=== PATIENT | female | born 1965 | race African-American/Black ===

== ENCOUNTER 2016-08-11 13:03 | Emergency (ER) | payer OTHER ==
[~2016-08-11] VITALS: Ht 167.6 cm; Wt 113.6 kg
[~2016-08-11 13:03] MED LIST: INSU100C4 SQ; METF10002 PO
[2016-08-11 13:15] LABS: GLUCOSE,POINT OF CARE 125 MG/DL (70-110)
[2016-08-11] MEDS ORDERED: TraMADol HCL 50 MG TABLET PO ONE (15:30)
[2016-08-11] MEDS ORDERED: KETOROLAC TROMETHAMINE 60 MG/2 ML VIAL IM ONE (15:30)
[2016-08-11 16:53] VITALS: BP 129/70
== END 2016-08-11 16:56 | disposition home or self-care (01) ==
LOC: EMS 13:08
DX: S43.409A Unspecified sprain of unspecified shoulder joint, initial encounter (principal); M12.811 Other specific arthropathies, not elsewhere classified, right shoulder; I10 Essential (primary) hypertension; E11.9 Type 2 diabetes mellitus without complications; Z79.4 Long term (current) use of insulin
CPT/HCPCS: 73030; 82962; 96372; 99284; A4566; J1885

== ENCOUNTER 2020-10-08 18:06 | Emergency (ER) | payer MEDICAID, OTHER ==
[~2020-10-08] VITALS: Ht 175.3 cm; Wt 118.2 kg
[~2020-10-08 18:06] MED LIST changes: +METF-446 PO; -METF10002 PO
[2020-10-08] MEDS ORDERED: [UNRECOGNIZED DRUG - REMARK] PO (18:18)
[2020-10-08] MEDS ORDERED: METHOCARBAMOL 500 MG TABLET PO ONE (20:00)
[2020-10-08] MEDS ORDERED: KETOROLAC TROMETHAMINE 60 MG/2 ML VIAL IM ONE (20:00)
[2020-10-08 20:30] VITALS: BP 145/61
== END 2020-10-08 20:50 | disposition home or self-care (01) ==
LOC: EMS 18:06
DX: S39.012A Strain of muscle, fascia and tendon of lower back, initial encounter (principal); E11.9 Type 2 diabetes mellitus without complications; F15.90 Other stimulant use, unspecified, uncomplicated; F12.90 Cannabis use, unspecified, uncomplicated; X58.XXXA Exposure to other specified factors, initial encounter; Y93.89 Activity, other specified; Y92.89 Other specified places as the place of occurrence of the external cause; Y99.8 Other external cause status
CPT/HCPCS: 82962; 96372; 99283; J1885

== ENCOUNTER 2020-12-24 17:23 | Emergency (ER) | payer MEDICAID ==
[~2020-12-24] VITALS: Ht 172.7 cm; Wt 122.7 kg
[~2020-12-24 17:23] MED LIST changes: +[UNRECOGNIZED DRUG - REMARK] PO
[2020-12-24 17:34] VITALS: BP 167/103
[2020-12-24] MEDS ORDERED: DOXYCYCLINE HYCLATE 100 MG TABLET PO ONE (18:30)
[2020-12-24] MEDS ORDERED: LIDOCAINE/PF 1% 2 ML VIAL IM ONE (18:30)
[2020-12-24] MEDS ORDERED: CefTRIAXone SODIUM 1 GM/VIAL IM ONE (18:30)
== END 2020-12-24 18:46 | disposition home or self-care (01) ==
LOC: EMS 17:24
DX: R30.0 Dysuria (principal); E11.9 Type 2 diabetes mellitus without complications; I10 Essential (primary) hypertension; F12.90 Cannabis use, unspecified, uncomplicated; F19.90 Other psychoactive substance use, unspecified, uncomplicated; Z70.8 Other sex counseling; Z79.84 Long term (current) use of oral hypoglycemic drugs
CPT/HCPCS: 82962; 87491; 87591; 96372; 99283; J0696; J3490

== ENCOUNTER 2021-01-30 09:12 | Emergency (ER) | payer MEDICAID ==
[~2021-01-30] VITALS: Ht 167.6 cm; Wt 122.7 kg
[2021-01-30 12:09] LABS: COVID AG,FIA SOURCE NASOPHARYNGEAL
[2021-01-30 12:34] LABS: RAPID GROUP A STREP NEGATIVE (NEGATIVE)
[2021-01-30] MEDS ORDERED: ALBUTEROL SULFATE HFA 90 MCG/PUFF 8 GM INHALER IH ONE (12:45)
[2021-01-30] MEDS ORDERED: AZITHROMYCIN 500 MG TABLET PO ONE (13:00)
[2021-01-30 13:45] VITALS: BP 141/81
== END 2021-01-30 13:50 | disposition home or self-care (01) ==
LOC: EMS 09:14
DX: J18.9 Pneumonia, unspecified organism (principal); E11.9 Type 2 diabetes mellitus without complications; I10 Essential (primary) hypertension; F12.90 Cannabis use, unspecified, uncomplicated; F19.90 Other psychoactive substance use, unspecified, uncomplicated; Z20.822 Contact with and (suspected) exposure to COVID-19; Z79.4 Long term (current) use of insulin
CPT/HCPCS: 71045; 82962; 87426; 87430; 94640; 99284; A9575; U0003; J3535

== ENCOUNTER 2021-03-01 07:50 | Observation (INO) | payer MEDICAID, OTHER ==
[~2021-03-01] VITALS: Ht 162.6 cm; Wt 131.0 kg
[2021-03-01 08:48] LABS: COVID AG,FIA SOURCE NASOPHARYNGEAL
[2021-03-01 08:49] LABS: BASOPHILS % (AUTO) 0.7 % (0.0-2.0); EOSINOPHILS % (AUTO) 3.1 % (1.0-6.0); HEMATOCRIT 39.7 % (36-46); HEMOGLOBIN 12.6 g/dL (12.0-16.0); LYMPHOCYTES # (AUTO) 1.6 K/uL (1.0-4.8); LYMPHOCYTES % (AUTO) 26.2 % (22.0-44.0); MEAN CORPUSCULAR HEMOGLOBIN 25.9 pg (26.0-34.0); MEAN CORPUSCULAR HGB CONC 31.8 G/dL (31.0-37.0); MEAN CORPUSCULAR VOLUME 82 fL (80-100); MONOCYTES # (AUTO) 0.4 K/uL (0.1-1.0); MONOCYTES % (AUTO) 6.6 % (2.0-9.0); NEUTROPHILS # (AUTO) 3.8 K/uL (1.8-7.7); NEUTROPHILS % (AUTO) 63.4 % (40.0-70.0); PLATELET COUNT (AUTO) 251 K/uL (150-450); RED BLOOD CELL COUNT(AUTO) 4.87 MIL/uL (4.00-5.20)
[2021-03-01 09:02] LABS: PROTHROMBIN TIME 10.3 SEC (9.4-11.6)
[2021-03-01 09:05] LABS: ANION GAP 6 mmol/L (8-16); CALCIUM, TOTAL 8.7 mg/dL (8.8-10.5); CARBON DIOXIDE 28 mmol/L (22-29); CHLORIDE 107 mmol/L (98-107); CREATININE 0.55 mg/dL (0.60-1.30); GLOMERULAR FILTR. RATE CALC > 60 mL/min (>60); GLUCOSE,RANDOM 111 mg/dL (70-110); SODIUM SERUM 141 mmol/L (136-145); UREA NITROGEN, BLOOD 12 mg/dL (7-18)
[2021-03-01 09:11] LABS: B-TYPE NATRIURETIC PEPTIDE 69 pg/mL (0-100)
[2021-03-01] MEDS ORDERED: AZITHROMYCIN 500 MG/NS 250 ML IV ONE (09:30)
[2021-03-01] MEDS ORDERED: CefTRIAXone 1 GM/DEXTROSE 50 ML IV ONE (09:30)
[2021-03-01 09:37] LABS: BILIRUBIN,URINE NEGATIVE (NEGATIVE); GLUCOSE, URINE (UA) NEGATIVE (NEGATIVE); KETONES,URINE NEGATIVE (NEGATIVE); LEUKOCYTE ESTERASE ,URINE NEGATIVE (NEGATIVE); NITRATE,URINE NEGATIVE (NEGATIVE); OCCULT BLOOD,URINE NEGATIVE (NEGATIVE); PH,URINE 7.5 (5.0-8.0); PROTEIN,URINE NEGATIVE (NEGATIVE); UROBILINOGEN,URINE 0.2 mg/dL (<=1.0)
[2021-03-01 09:37] LABS: ALANINE AMINOTRANSFERASE 26 U/L (12-78); ALBUMIN 3.1 g/dL (3.4-5.0); ALKALINE PHOSPHATASE 90 U/L (46-116); ASPARTATE AMINOTRANSFERASE 14 U/L (15-37); BILIRUBIN,TOTAL 0.2 mg/dL (0.1-1.0); CREATINE KINASE, TOTAL ONLY 143 U/L (26-192); HCG,QUANTITATIVE 2 mIU/mL (0-6); PHOSPHORUS 3.1 mg/dL (2.5-4.9); TOTAL PROTEIN, SERUM 7.1 g/dL (6.4-8.2)
[2021-03-01 09:43] LABS: AMPHET/METH SCREEN,URINE NEGATIVE (NEGATIVE); BARBITURATE SCREEN, URINE NEGATIVE (NEGATIVE); BENZODIAZEPINES SCREEN,URINE NEGATIVE (NEGATIVE); CANNABINOID SCREEN,URINE POSITIVE (NEGATIVE); COCAINE SCREEN,URINE NEGATIVE (NEGATIVE); METHADONE SCREEN, URINE NEGATIVE (NEGATIVE); OPIATE SCREEN,URINE NEGATIVE (NEGATIVE)
[2021-03-01 09:57] LABS: PHENCYCLIDINE SCREEN,URINE NEGATIVE (NEGATIVE)
[2021-03-01] MEDS ORDERED: MAGNESIUM SULFATE 1 GM in DEXTROSE 5%-WATER 50 ML IV ONE (10:00)
[2021-03-01 10:13] LABS: APPEARANCE,URINE CLEAR (CLEAR)
[2021-03-01] MEDS ORDERED: 0.9% SODIUM CHLORIDE 10 ML SYRINGE IVP PRN (10:15)
[2021-03-01] MEDS ORDERED: ACETAMINOPHEN 325 MG TABLET PO PRN ×2 (10:15→18:00)
[2021-03-01] MEDS ORDERED: ONDANSETRON HCL 4 MG/2 ML VIAL IVP PRN ×2 (10:15→18:00)
[2021-03-01 14:06] VITALS: BP 150/63
[2021-03-01] MEDS ORDERED: PNEUMOCOCCAL VACCINE POLYVALENT 0.5 ML VIAL [PPSV23] IM. ONE (14:45)
[2021-03-01] MEDS ORDERED: ZOLPIDEM TARTRATE 5 MG TABLET PO PRN (18:00)
[2021-03-01] MEDS ORDERED: MORPHINE SULFATE 2 MG/ML SYRINGE IVP PRN (18:00)
[2021-03-01] MEDS ORDERED: INSULIN LISPRO 100 UNITS/ML SQ PRN ×2 (18:00→20:30)
[2021-03-01] MEDS ORDERED: IPRATROPIUM BROMIDE 0.5 MG/2.5 ML NEB SOLUTION NEB PRN (18:00)
[2021-03-01] MEDS ORDERED: HYDROCODONE/ACETAMINOPHEN 5-325 MG TABLET PO PRN (18:00)
[2021-03-01] MEDS ORDERED: ALBUTEROL SULFATE 2.5 MG/0.5 ML NEB SOLUTION NEB PRN (18:00)
[2021-03-01] MEDS ORDERED: BISACODYL 10 MG RECTAL RECTAL SUPPOSITORY PR PRN (18:00)
[2021-03-01] MEDS ORDERED: MAGNESIUM HYDROXIDE SUSPENSION 30 ML UDCUP PO PRN (18:00)
[2021-03-01] MEDS ORDERED: DEXTROSE 50%-WATER 25 GM/50 ML SYRINGE IVP PRN ×2 (18:00→20:30)
[2021-03-01 18:43] LABS: FREE T4 (FREE THYROXINE) 1.15 ng/dL (0.76-1.46); THYROID STIMULATING HORMONE 1.79 uIU/mL (0.36-3.74)
[2021-03-01 19:56] VITALS: BP 183/79
[2021-03-01] MEDS ORDERED: MAGNESIUM SULFATE 2 GM/WATER 50 ML IV PRN (20:30)
[2021-03-01] MEDS ORDERED: MAGNESIUM SULFATE 4 GM/WATER 100 ML IV PRN (20:30)
[2021-03-01] MEDS ORDERED: MAGNESIUM OXIDE 400 MG TABLET PO PRN (20:30)
[2021-03-01] MEDS ORDERED: POTASSIUM CHLORIDE 20 MEQ ER TABLET PO PRN (20:30)
[2021-03-01] MEDS ORDERED: HydrALAZINE HCL 20 MG/ML VIAL IVP PRN (20:30)
[2021-03-01] MEDS: DOCUSATE SODIUM 100 MG CAPSULE PO SCH (21:00)
[2021-03-01] MEDS: LOSARTAN POTASSIUM 25 MG TABLET PO SCH (21:30)
[2021-03-01 23:42] VITALS: BP 148/76
[2021-03-02] MEDS: HEPARIN SODIUM,PORCINE 5,000 UNITS/ML VIAL SQ SCH ×4 (00:14→23:38)
[2021-03-02 04:39] VITALS: BP 148/73
[2021-03-02 05:19] LABS: GLUCOMETER DEV NAME(LOC) 5N.3; GLUCOSE,POINT OF CARE 116 MG/DL (70-110)
[2021-03-02 07:28] LABS: EOSINOPHILS % (AUTO) 2.9 % (1.0-6.0); HEMATOCRIT 41.3 % (36-46); HEMOGLOBIN 13.1 g/dL (12.0-16.0); LYMPHOCYTES # (AUTO) 1.7 K/uL (1.0-4.8); LYMPHOCYTES % (AUTO) 27.4 % (22.0-44.0); MEAN CORPUSCULAR HGB CONC 31.7 G/dL (31.0-37.0); MEAN CORPUSCULAR VOLUME 82 fL (80-100); MONOCYTES # (AUTO) 0.5 K/uL (0.1-1.0); MONOCYTES % (AUTO) 7.9 % (2.0-9.0); NEUTROPHILS # (AUTO) 3.9 K/uL (1.8-7.7); NEUTROPHILS % (AUTO) 60.8 % (40.0-70.0); PLATELET COUNT (AUTO) 274 K/uL (150-450); RED BLOOD CELL COUNT(AUTO) 5.04 MIL/uL (4.00-5.20); RED CELL DISTRIBUTION WIDTH 15.3 % (11.5-14.5)
[2021-03-02 07:30] LABS: HEMOGLOBIN A1C 6.3 % (3.8-5.6)
[2021-03-02 07:41] VITALS: BP 147/71
[2021-03-02 07:50] LABS: ALANINE AMINOTRANSFERASE 26 U/L (12-78); ALKALINE PHOSPHATASE 82 U/L (46-116); ANION GAP 5 mmol/L (8-16); ASPARTATE AMINOTRANSFERASE 17 U/L (15-37); BILIRUBIN,TOTAL 0.2 mg/dL (0.1-1.0); CALCIUM, TOTAL 8.8 mg/dL (8.8-10.5); CARBON DIOXIDE 29 mmol/L (22-29); CHLORIDE 106 mmol/L (98-107); CREATININE 0.58 mg/dL (0.60-1.30); GLOMERULAR FILTR. RATE CALC > 60 mL/min (>60); GLUCOSE,RANDOM 108 mg/dL (70-110); SODIUM SERUM 140 mmol/L (136-145); UREA NITROGEN, BLOOD 13 mg/dL (7-18)
[2021-03-02] MEDS ORDERED: SODIUM CHLORIDE 0.9% 250 ML IV ONE (08:11)
[2021-03-02] MEDS: CefTRIAXone 1 GM/DEXTROSE 50 ML IV SCH (08:12)
[2021-03-02] MEDS: DOCUSATE SODIUM 100 MG CAPSULE PO SCH ×2 (08:12→22:07)
[2021-03-02] MEDS: LOSARTAN POTASSIUM 25 MG TABLET PO SCH ×2 (08:12→22:07)
[2021-03-02] MEDS: AZITHROMYCIN 500 MG/NS 250 ML IV SCH (09:39)
[2021-03-02 11:15] VITALS: BP 141/72
[2021-03-02 12:34] LABS: GLUCOMETER DEV NAME(LOC) 5S.1; GLUCOSE,POINT OF CARE 71 MG/DL (70-110)
[2021-03-02 12:37] LABS: GLUCOMETER DEV NAME(LOC) 5N.1C; GLUCOSE,POINT OF CARE 123 MG/DL (70-110)
[2021-03-02 15:19] VITALS: BP 148/73
[2021-03-02] MEDS ORDERED: METF-911 PO (15:41)
[2021-03-02] MEDS ORDERED: LOSA25TA2 PO (15:41)
[2021-03-02 20:06] VITALS: BP 150/91
[2021-03-02 22:07] VITALS: BP 141/68
[2021-03-02 23:57] LABS: GLUCOMETER DEV NAME(LOC) 6N.1; GLUCOSE,POINT OF CARE 150 MG/DL (70-110)
[2021-03-03 05:32] LABS: BASOPHILS % (AUTO) 0.7 % (0.0-2.0); EOSINOPHILS % (AUTO) 2.9 % (1.0-6.0); HEMATOCRIT 43.2 % (36-46); HEMOGLOBIN 13.7 g/dL (12.0-16.0); LYMPHOCYTES % (AUTO) 29.9 % (22.0-44.0); MEAN CORPUSCULAR HGB CONC 31.7 G/dL (31.0-37.0); MEAN CORPUSCULAR VOLUME 82 fL (80-100); MONOCYTES # (AUTO) 0.6 K/uL (0.1-1.0); MONOCYTES % (AUTO) 8.7 % (2.0-9.0); NEUTROPHILS # (AUTO) 3.8 K/uL (1.8-7.7); NEUTROPHILS % (AUTO) 57.8 % (40.0-70.0); PLATELET COUNT (AUTO) 298 K/uL (150-450); RED BLOOD CELL COUNT(AUTO) 5.26 MIL/uL (4.00-5.20); RED CELL DISTRIBUTION WIDTH 15.1 % (11.5-14.5)
[2021-03-03 05:45] VITALS: BP 141/65
[2021-03-03 05:54] LABS: ALANINE AMINOTRANSFERASE 25 U/L (12-78); ALBUMIN 3.1 g/dL (3.4-5.0); ALKALINE PHOSPHATASE 85 U/L (46-116); ANION GAP 11 mmol/L (8-16); ASPARTATE AMINOTRANSFERASE 17 U/L (15-37); BILIRUBIN,TOTAL 0.2 mg/dL (0.1-1.0); CARBON DIOXIDE 29 mmol/L (22-29); CHLORIDE 105 mmol/L (98-107); GLOMERULAR FILTR. RATE CALC > 60 mL/min (>60); GLUCOSE,RANDOM 113 mg/dL (70-110); POTASSIUM 4.6 mmol/L (3.5-5.1); SODIUM SERUM 145 mmol/L (136-145); TOTAL PROTEIN, SERUM 7.4 g/dL (6.4-8.2); UREA NITROGEN, BLOOD 14 mg/dL (7-18)
[2021-03-03 06:59] LABS: GLUCOMETER DEV NAME(LOC) 6N.1; GLUCOSE,POINT OF CARE 107 MG/DL (70-110)
[2021-03-03 08:22] VITALS: BP 138/68
[2021-03-03] MEDS: DOCUSATE SODIUM 100 MG CAPSULE PO SCH (08:32)
[2021-03-03] MEDS: LOSARTAN POTASSIUM 25 MG TABLET PO SCH (08:32)
[2021-03-03] MEDS: HEPARIN SODIUM,PORCINE 5,000 UNITS/ML VIAL SQ SCH ×2 (08:32→16:00)
[2021-03-03] MEDS: CefTRIAXone 1 GM/DEXTROSE 50 ML IV SCH (08:33)
[2021-03-03] MEDS ORDERED: SODIUM CHLORIDE 0.9% 250 ML IV ONE (08:43)
[2021-03-03] MEDS: AZITHROMYCIN 500 MG/NS 250 ML IV SCH (10:17)
[2021-03-03 14:28] LABS: GLUCOMETER DEV NAME(LOC) 6N.1; GLUCOSE,POINT OF CARE 123 MG/DL (70-110)
[2021-03-03] MEDS ORDERED: AZITH500IV IV (14:37)
[2021-03-03] MEDS ORDERED: CEFX2I IV (14:38)
[2021-03-03] MEDS ORDERED: DOCU-270 PO (14:38)
[2021-03-03] MEDS ORDERED: HEPA500018 SQ (14:39)
[2021-03-03] MEDS ORDERED: LOSA25TA21 PO (14:40)
[2021-03-03] MEDS ORDERED: BISA10SU11 PR (14:41)
[2021-03-03] MEDS ORDERED: HYDR-4723 PO (14:42)
[2021-03-03] MEDS ORDERED: HYDR20I IVP (14:44)
[2021-03-03] MEDS ORDERED: ONDA4VIA22 IV (14:48)
[2021-03-03 15:20] VITALS: BP 127/82
== END 2021-03-03 20:13 | disposition home or self-care (01) ==
LOC: EMS 07:53 → 5S 10:41 → INTOOBSV 10:41 → 6N 03-02 21:35
PROVIDERS: ADMIT Hospitalist; ATTEND Hospitalist
DX: R00.1 Bradycardia, unspecified (principal); E83.42 Hypomagnesemia; Z20.822 Contact with and (suspected) exposure to COVID-19; R53.1 Weakness; F20.9 Schizophrenia, unspecified; I10 Essential (primary) hypertension; E11.9 Type 2 diabetes mellitus without complications; F19.10 Other psychoactive substance abuse, uncomplicated; E44.0 Moderate protein-calorie malnutrition; Z96.653 Presence of artificial knee joint, bilateral; Z79.4 Long term (current) use of insulin; Z79.899 Other long term (current) drug therapy
CPT/HCPCS: 36415 ×3; 70450; 71045; 80053 ×3; 80307; 81003; 82040; 82550; 82962 ×3; 83036; 83735 ×2; 83880; 84100; 84439 ×2; 84443; 84484; 84702; 85025 ×3; 85610; 85730; 87426; 93005; 93306; 96365; 96366 ×3; 96367; 96372 ×2; 99219 ×3; 99285; G0480; J0360; J0456 ×2; J0696 ×2; J1644 ×2; J3475; J7050 ×2; J7060; U0003; 93366

== ENCOUNTER 2021-04-22 11:50 | Inpatient (IN) | payer OTHER ==
[~2021-04-22] VITALS: Ht 172.7 cm; Wt 133.8 kg
[~2021-04-22 11:50] MED LIST changes: -INSU100C4 SQ; +LOSA25TA2 PO; +LOSA25TA21 PO; -METF-446 PO; +METF-911 PO; -[UNRECOGNIZED DRUG - REMARK] PO
[2021-04-22 12:59] LABS: BASOPHILS % (AUTO) 0.7 % (0.0-2.0); EOSINOPHILS % (AUTO) 2.5 % (1.0-6.0); HEMATOCRIT 38.5 % (36-46); HEMOGLOBIN 12.2 g/dL (12.0-16.0); LYMPHOCYTES # (AUTO) 2.1 K/uL (1.0-4.8); LYMPHOCYTES % (AUTO) 34.5 % (22.0-44.0); MEAN CORPUSCULAR HEMOGLOBIN 25.5 pg (26.0-34.0); MEAN CORPUSCULAR HGB CONC 31.6 G/dL (31.0-37.0); MEAN CORPUSCULAR VOLUME 81 fL (80-100); MONOCYTES # (AUTO) 0.6 K/uL (0.1-1.0); MONOCYTES % (AUTO) 9.7 % (2.0-9.0); NEUTROPHILS # (AUTO) 3.2 K/uL (1.8-7.7); NEUTROPHILS % (AUTO) 52.6 % (40.0-70.0); PLATELET COUNT (AUTO) 277 K/uL (150-450); RED BLOOD CELL COUNT(AUTO) 4.77 MIL/uL (4.00-5.20)
[2021-04-22 13:15] LABS: ANION GAP 9 mmol/L (8-16); CARBON DIOXIDE 27 mmol/L (22-29); CHLORIDE 108 mmol/L (98-107); GLOMERULAR FILTR. RATE CALC > 60 mL/min (>60); GLUCOSE,RANDOM 86 mg/dL (70-110); SODIUM SERUM 144 mmol/L (136-145); UREA NITROGEN, BLOOD 15 mg/dL (7-18)
[2021-04-22 13:23] LABS: ALBUMIN 3.6 g/dL (3.4-5.0); ALKALINE PHOSPHATASE 82 U/L (46-116); ASPARTATE AMINOTRANSFERASE 12 U/L (15-37); BILIRUBIN,TOTAL 0.4 mg/dL (0.1-1.0); FREE T4 (FREE THYROXINE) 1.14 ng/dL (0.76-1.46); THYROID STIMULATING HORMONE 1.21 uIU/mL (0.36-3.74); TOTAL PROTEIN, SERUM 7.6 g/dL (6.4-8.2)
[2021-04-22 13:34] LABS: ALANINE AMINOTRANSFERASE 22 U/L (12-78)
[2021-04-22] MEDS ORDERED: SODIUM CHLORIDE 0.9% 100 ML ONE (14:05)
[2021-04-22] MEDS ORDERED: IOHEXOL 350 MG/ML 75 ML VIAL ONE (14:06)
[2021-04-22 15:59] LABS: COVID AG,FIA SOURCE NASOPHARYNGEAL
[2021-04-22] MEDS ORDERED: ACETAMINOPHEN 325 MG TABLET PO PRN ×2 (16:15→17:15)
[2021-04-22] MEDS ORDERED: 0.9% SODIUM CHLORIDE 10 ML SYRINGE IVP PRN (16:15)
[2021-04-22] MEDS ORDERED: ONDANSETRON HCL 4 MG/2 ML VIAL IVP PRN ×2 (16:15→17:15)
[2021-04-22] MEDS ORDERED: HYDROCODONE/ACETAMINOPHEN 5-325 MG TABLET PO PRN (17:15)
[2021-04-22] MEDS ORDERED: MORPHINE SULFATE 2 MG/ML SYRINGE IVP PRN (17:15)
[2021-04-22] MEDS ORDERED: MAGNESIUM HYDROXIDE SUSPENSION 30 ML UDCUP PO PRN (17:15)
[2021-04-22] MEDS ORDERED: ZOLPIDEM TARTRATE 5 MG TABLET PO PRN (17:15)
[2021-04-22] MEDS ORDERED: BISACODYL 10 MG RECTAL RECTAL SUPPOSITORY PR PRN (17:15)
[2021-04-22 20:33] VITALS: BP 134/58
[2021-04-22] MEDS: DOCUSATE SODIUM 100 MG CAPSULE PO SCH (20:52)
[2021-04-23] MEDS: HEPARIN SODIUM,PORCINE 5,000 UNITS/ML VIAL SQ SCH ×2 (00:02→09:03)
[2021-04-23 00:20] VITALS: BP 138/56
[2021-04-23 04:40] VITALS: BP 139/56
[2021-04-23 08:15] VITALS: BP 122/57
[2021-04-23] MEDS ORDERED: PANTOPRAZOLE SODIUM 40 MG DR TABLET PO SCH (09:00)
[2021-04-23] MEDS: DOCUSATE SODIUM 100 MG CAPSULE PO SCH (09:03)
[2021-04-23 12:00] VITALS: BP 129/58
[2021-04-23] MEDS ORDERED: HYDR-4723 PO (16:59)
== END 2021-04-23 18:00 | disposition home or self-care (01) | DRG 201 ==
LOC: EMS 11:59 → 5S 17:05
PROVIDERS: ADMIT Internal Medicine; ATTEND Internal Medicine
DX: R00.1 Bradycardia, unspecified (principal); E11.9 Type 2 diabetes mellitus without complications; R55 Syncope and collapse; E66.9 Obesity, unspecified; F20.9 Schizophrenia, unspecified; I10 Essential (primary) hypertension; Z20.822 Contact with and (suspected) exposure to COVID-19; Z82.49 Family history of ischemic heart disease and other diseases of the circulatory system; Z86.711 Personal history of pulmonary embolism; Z87.891 Personal history of nicotine dependence; Z96.653 Presence of artificial knee joint, bilateral; Z68.41 Body mass index [BMI] 40.0-44.9, adult
CPT/HCPCS: 71045; 71275; 80053; 84439; 84443; 84484; 85025; 93005; 93306; 99285; G0378; J1644; J7050; Q9967; 36415-L1; 36415-TC

== ENCOUNTER 2021-06-26 07:40 | Emergency (ER) | payer OTHER ==
[~2021-06-26] VITALS: Ht 172.7 cm; Wt 127.0 kg
[~2021-06-26 07:40] MED LIST changes: +HYDR-4723 PO; -LOSA25TA2 PO; -METF-911 PO
[2021-06-26 07:42] VITALS: BP 118/63
[2021-06-26] MEDS ORDERED: METF-1211 PO (07:42)
[2021-06-26 08:46] LABS: BASOPHILS % (AUTO) 0.4 % (0.0-2.0); HEMATOCRIT 40.7 % (36-46); HEMOGLOBIN 13.1 g/dL (12.0-16.0); LYMPHOCYTES # (AUTO) 1.3 K/uL (1.0-4.8); LYMPHOCYTES % (AUTO) 18.7 % (22.0-44.0); MEAN CORPUSCULAR HEMOGLOBIN 25.3 pg (26.0-34.0); MEAN CORPUSCULAR HGB CONC 32.3 G/dL (31.0-37.0); MEAN CORPUSCULAR VOLUME 78 fL (80-100); MONOCYTES # (AUTO) 0.5 K/uL (0.1-1.0); MONOCYTES % (AUTO) 7.7 % (2.0-9.0); NEUTROPHILS # (AUTO) 4.8 K/uL (1.8-7.7); NEUTROPHILS % (AUTO) 69.2 % (40.0-70.0); PLATELET COUNT (AUTO) 269 K/uL (150-450); RED CELL DISTRIBUTION WIDTH 14.6 % (11.5-14.5)
[2021-06-26 09:01] LABS: ANION GAP 5 mmol/L (8-16); CALCIUM, TOTAL 9.1 mg/dL (8.8-10.5); CARBON DIOXIDE 28 mmol/L (22-29); CHLORIDE 107 mmol/L (98-107); GLOMERULAR FILTR. RATE CALC > 60 mL/min (>60); GLUCOSE,RANDOM 123 mg/dL (70-110); SODIUM SERUM 140 mmol/L (136-145); UREA NITROGEN, BLOOD 13 mg/dL (7-18)
[2021-06-26 09:04] LABS: ALANINE AMINOTRANSFERASE 27 U/L (12-78); ALBUMIN 3.5 g/dL (3.4-5.0); ALKALINE PHOSPHATASE 91 U/L (46-116); ASPARTATE AMINOTRANSFERASE 14 U/L (15-37); BILIRUBIN,TOTAL 0.4 mg/dL (0.1-1.0); LIPASE 49 U/L (73-393); TOTAL PROTEIN, SERUM 7.6 g/dL (6.4-8.2)
[2021-06-26] MEDS: ONDANSETRON HCL 4 MG TABLET PO ONE (09:58)
[2021-06-26] MEDS: FAMOTIDINE 20 MG TABLET PO ONE (09:58)
== END 2021-06-26 12:00 | disposition home or self-care (01) ==
LOC: EMS 07:40
DX: R10.84 Generalized abdominal pain (principal); E11.9 Type 2 diabetes mellitus without complications; Z79.84 Long term (current) use of oral hypoglycemic drugs; Z79.899 Other long term (current) drug therapy
CPT/HCPCS: 36415; 80053; 82962; 83690; 85025; 99283; G0480; Q0162